=== PATIENT | male | born 1995 | race Caucasian/White ===

== ENCOUNTER 2016-10-28 11:58 | Emergency (ER) | payer MEDICAID, OTHER ==
[~2016-10-28] VITALS: Ht 172.7 cm; Wt 85.0 kg
[2016-10-28 12:06] VITALS: BP 115/67
== END 2016-10-28 14:35 | disposition left against medical advice (07) ==
LOC: ER 11:59
DX: R10.9 Unspecified abdominal pain (principal); Z53.21 Procedure and treatment not carried out due to patient leaving prior to being seen by health care provider